=== PATIENT | female | born 1995 | race Caucasian/White ===

== ENCOUNTER 2018-06-21 16:15 | Outpatient (CLI) | payer OTHER ==
[2018-06-21 17:20] LABS: ADD UMIC NO; UR ASCORBIC ACID NEGATIVE (NEGATIVE); UR BILIRUBIN (Dip) NEGATIVE (NEGATIVE); UR BLOOD (Dip) NEGATIVE (NEGATIVE); UR CLARITY CLEAR (CLEAR); UR COLOR STRAW (YELLOW); UR GLUCOSE (Dip) NEGATIVE (NEGATIVE); UR KETONES (Dip) NEGATIVE (NEGATIVE); UR LEUKOCYTE ESTERASE (Dip) NEGATIVE Leu/ul (NEGATIVE); UR NITRITE (Dip) NEGATIVE (NEGATIVE); UR SPECIFIC GRAVITY (Dip) 1.015 (1.003-1.030); UR TOTAL PROTEIN (Dip) NEGATIVE (NEGATIVE); UR UROBILINOGEN (Dip) NEGATIVE (NEGATIVE)
== END 2018-06-21 18:35 | disposition home or self-care (01) ==
LOC: OBT 16:15 → L-D 16:15 → OBT 18:35
DX: O26.852 Spotting complicating pregnancy, second trimester (principal); Z3A.21 21 weeks gestation of pregnancy
CPT/HCPCS: 76815; 76817; 81003; 87086

== ENCOUNTER 2018-09-26 11:08 | Outpatient (CLI) | payer OTHER ==
[2018-09-26 12:15] LABS: ADD UMIC YES; UR ASCORBIC ACID NEGATIVE (NEGATIVE); UR BACTERIA FEW /HPF (NONE SEEN); UR BILIRUBIN (Dip) NEGATIVE (NEGATIVE); UR BLOOD (Dip) 1+ mg/dL (NEGATIVE); UR CLARITY SLIGHTLY CLOUDY (CLEAR); UR COLOR YELLOW (YELLOW); UR GLUCOSE (Dip) NEGATIVE (NEGATIVE); UR KETONES (Dip) NEGATIVE (NEGATIVE); UR LEUKOCYTE ESTERASE (Dip) NEGATIVE Leu/ul (NEGATIVE); UR NITRITE (Dip) NEGATIVE (NEGATIVE); UR RBC 0 /HPF (0-5); UR SPECIFIC GRAVITY (Dip) 1.011 (1.003-1.030); UR SQUAMOUS EPITHELIAL CELL MODERATE /HPF (FEW); UR TOTAL PROTEIN (Dip) NEGATIVE (NEGATIVE); UR UROBILINOGEN (Dip) NEGATIVE (NEGATIVE); UR WBC 2 /HPF (0-5)
== END 2018-09-26 13:55 | disposition home or self-care (01) ==
LOC: OBT 11:08 → L-D 11:10 → OBT 13:55
DX: O62.9 Abnormality of forces of labor, unspecified (principal); Z3A.35 35 weeks gestation of pregnancy
CPT/HCPCS: 76818; 81001; 87086

== ENCOUNTER 2018-10-16 14:09 | Inpatient (IN) | payer OTHER ==
[2018-10-16] MEDS ORDERED: CEFAZOLIN 2 GM/50 ML (PMX) 50 ML IVPB (14:50)
[2018-10-16] MEDS: CEFAZOLIN 2 GM/50 ML (PMX) 50 ML IVPB (14:54)
[2018-10-16] MEDS: LACTATED RINGER'S 1,000 ML IV ×2 (14:57→20:12)
[2018-10-16] MEDS ORDERED: BUTORPHANOL 2 MG INJ IV (15:00)
[2018-10-16] MEDS ORDERED: LIDOCAINE 1% (MPF) 30 ML INJ INJ (15:00)
[2018-10-16] MEDS ORDERED: CARBOPROST 250 MCG INJ IM (15:00)
[2018-10-16] MEDS ORDERED: MISOPROSTOL 200 MCG TAB PR (15:00)
[2018-10-16] MEDS ORDERED: METHYLERGONOVINE 0.2 MG INJ IM (15:00)
[2018-10-16] MEDS ORDERED: OXYTOCIN 30 UNITS/LR 500 ML IV (15:00)
[2018-10-16 15:04] LABS: ADD MAN DIFF? NO
[2018-10-16 15:10] LABS: BASOPHILS % 0.3 % (0.0-2.0); EOSINOPHILS % 0.3 % (0.0-7.0); HEMATOCRIT 38.5 % (37.0-47.0); HEMOGLOBIN 12.6 g/dl (12.0-16.0); LYMPHOCYTES % 17.1 % (15.0-51.0); MEAN CORPUSCULAR HEMOGLOBIN 27.9 pg (29.0-33.0); MEAN CORPUSCULAR HGB CONC 32.7 g/dl (32.0-37.0); MEAN CORPUSCULAR VOLUME 85.4 fl (82.0-101.0); MEAN PLATELET VOLUME 10.7 fl (7.4-10.4); MONOCYTE # 0.7 10^3/ul (0.3-0.9); MONOCYTES % 5.8 % (0.0-11.0); NEUTROPHIL # 8.9 10^3/ul (1.6-7.5); NEUTROPHILS % 76.1 % (39.0-77.0); PLATELET COUNT 257 10^3/UL (140-415); RED BLOOD COUNT 4.51 10^6/ul (4.20-5.40)
[2018-10-16 15:10] LABS: WHITE BLOOD COUNT 11.7 10^3/ul (4.8-10.8)
[2018-10-16 15:19] LABS: INR 0.94; PARTIAL THROMBOPLASTIN TIME 28.6 Sec (23.0-35.0); PROTIME 12.7 Sec (11.9-14.9)
[2018-10-16 15:46] LABS: HEPATITIS B SURFACE ANTIGEN NEGATIVE (NEGATIVE)
[2018-10-16 22:04] LABS: RAPID PLASMA REAGIN NONREACTIVE (NR)
[2018-10-17] MEDS: OXYTOCIN 30 UNITS/LR 500 ML IV ×4 (00:55→17:18)
[2018-10-17] MEDS: CLINDAMYCIN 900 MG/D5W (PMX) 50 ML IVPB ×2 (07:53→14:54)
[2018-10-17] MEDS: BUTORPHANOL 2 MG INJ IV (10:30)
[2018-10-17] MEDS ORDERED: FENTAnyl 2MCG/ML-ROPIV 0.2% 100 ML (11:17)
[2018-10-17] MEDS: LACTATED RINGER'S 1,000 ML IV (11:24)
[2018-10-17] MEDS ORDERED: NALOXONE (0.4 MG/ML) INJ IV (11:30)
[2018-10-17] MEDS: FENTAnyl 2MCG/ML-ROPIV 0.2% 100 ML BAG EPI (11:37)
[2018-10-17] MEDS: MINERAL OIL LIGHT 10 ML VIAL TOP (14:54)
[2018-10-17] MEDS: IBUPROFEN 600 MG TAB PO (16:28)
[2018-10-17] MEDS ORDERED: METHYLERGONOVINE 0.2 MG INJ IM (18:30)
[2018-10-17] MEDS ORDERED: CARBOPROST 250 MCG INJ IM (18:30)
[2018-10-17] MEDS ORDERED: OXYTOCIN 30 UNITS/LR 500 ML IV (18:30)
[2018-10-17] MEDS ORDERED: ZOLPIDEM 5 MG TAB PO (18:30)
[2018-10-17] MEDS ORDERED: MISOPROSTOL 200 MCG TAB PR (18:30)
[2018-10-17] MEDS ORDERED: OXYCODONE/ASPIRIN (4.88/325) TAB PO (18:30)
[2018-10-17] MEDS: SENNA/DOCUSATE NA (8.6MG/50MG) TAB PO (22:41)
[2018-10-17] MEDS: WITCH HAZEL/GLYCERIN PAD PR (22:42)
[2018-10-17] MEDS: LANOLIN HPA 1 PKT TOP (22:42)
[2018-10-17] MEDS: BENZOCAINE 20% 56 ML SPRAY TOP (22:42)
[2018-10-18] MEDS: IBUPROFEN 600 MG TAB PO ×4 (00:41→18:00)
[2018-10-18 08:42] LABS: ADD MAN DIFF? NO
[2018-10-18 08:53] LABS: WHITE BLOOD COUNT 12.6 10^3/ul (4.8-10.8)
[2018-10-18 08:53] LABS: BASOPHILS % 0.2 % (0.0-2.0); EOSINOPHILS # 0.1 10^3/ul (0.0-0.5); EOSINOPHILS % 0.8 % (0.0-7.0); HEMATOCRIT 36.8 % (37.0-47.0); HEMOGLOBIN 11.9 g/dl (12.0-16.0); LYMPHOCYTES # 2.8 10^3/ul (0.8-2.9); LYMPHOCYTES % 22.5 % (15.0-51.0); MEAN CORPUSCULAR HEMOGLOBIN 28.1 pg (29.0-33.0); MEAN CORPUSCULAR HGB CONC 32.3 g/dl (32.0-37.0); MEAN PLATELET VOLUME 10.9 fl (7.4-10.4); MONOCYTES % 7.7 % (0.0-11.0); NEUTROPHIL # 8.6 10^3/ul (1.6-7.5); NEUTROPHILS % 68.2 % (39.0-77.0); PLATELET COUNT 184 10^3/UL (140-415); RED BLOOD COUNT 4.23 10^6/ul (4.20-5.40); RED CELL DISTRIBUTION WIDTH 14.3 % (11.5-14.5)
[2018-10-18] MEDS: SENNA/DOCUSATE NA (8.6MG/50MG) TAB PO ×2 (09:37→21:19)
[2018-10-18] MEDS: OXYCODONE/ASPIRIN (4.88/325) TAB PO ×2 (15:24→21:21)
[2018-10-19] MEDS: IBUPROFEN 600 MG TAB PO ×3 (00:34→12:18)
[2018-10-19] MEDS: SENNA/DOCUSATE NA (8.6MG/50MG) TAB PO (07:58)
[2018-10-19] MEDS: OXYCODONE/ASPIRIN (4.88/325) TAB PO (07:59)
[2018-10-19] MEDS: DIPHTH/TET/ACEL PERTUSS (ADULT) 0.5 ML VIAL IM* (09:00)
== END 2018-10-19 15:35 | disposition home or self-care (01) | DRG 807 ==
LOC: OBT 14:09 → L-D 14:10 → PP1 10-17 17:22 → OBT 15:25 → L-D 15:25
PROVIDERS: Obstetrics & Gynecology
PROC: 10E0XZZ Delivery of Products of Conception, External Approach (ICD-10-PCS; principal; 2018-10-17)
DX: O80 Encounter for full-term uncomplicated delivery (principal); Z37.0 Single live birth; Z3A.38 38 weeks gestation of pregnancy
CPT/HCPCS: 62322; 76815; 85025; 85610; 85730; 86592; 86850; 86900; 86901; 87340